=== PATIENT | male | born 1995 | race Caucasian/White ===

== ENCOUNTER 2021-12-29 09:02 | Emergency (ER) | payer OTHER, SELFPAY ==
[2021-12-29] VITALS (20 sets, daily range): BP systolic 108–141; BP diastolic 78–90; PULSE 64–83; RESP 11–35; TEMP 36.9; O2SAT 96–98
--- NOTE | ~2021-12-29 | XR_ITS ---
EXAMINATION: XR chest 1V portable EXAM DATE: 12/29/2021 09:29 INDICATION: left sided chest pain TECHNIQUE: Portable AP frontal chest x-ray was obtained. There is no prior study for comparison. FINDINGS: Small amount of left basilar airspace disease. The lungs are otherwise clear. There are no pleural effusions. The cardiomediastinal silhouette is within normal limits. There is no pneumotho rax suspected. The bones and soft tissues are unremarkable. IMPRESSION: Small amount of left basilar pneumonia or atelectasis. Reviewed, dictated and finalized at location A. EST SUPERVISOR
--- NOTE | 2021-12-29 09:18 | ECG_ITS ---
Measurements Intervals [place] Rate: 62 P: 24 TX: 134 QRS: 35 QRSD: 97 T: 42 QT: 359 QTc: 366 Interpretive Statements SINUS RHYTHM ST ELEVATION IN ANTEROLATERAL LEADS, PROBABLY EARLY REPOLARIZATION MINIMAL Q WAVES- LAT/HIGH LAT LEADS BASELINE ARTIFACT- I, II, III, V1-V4 BORDERLINE ECG Electronically Signed On 12-29-2021 11:02:20 [employer] SUPERVISOR by Mati Lara D.O.
--- NOTE | 2021-12-29 09:20 | PC.NURSE ---
Radiology at bedside to obtain chest xray.
--- NOTE | 2021-12-29 09:22 | ED.CHESTPAIN ---
HPI - Chest Pain General Chief Complaint: Chest Pain Stated Complaint: SOB,CP Time Seen by Provider: 12/29/21 09:07 Source: patient Mode of arrival: EMS Limitations: no limitations History of Present Illness HPI narrative: 26 y/o male presents with left sided chest pain that increased with deep breaths that started Tuesday. patient states he went to [facility] twice yesterday and was diagnosed with pneumonia. Patient said he has been taking prescribed antibiotics and Tylenol with no relief. Patient states he cannot take the pain anymore. Patient has a history of ulcerative colitis but denies any chest lung or other abdominal issues. Patient denies cough fever or shortness of breath. Related Data Home Medications Medication Instructions Recorded Confirmed ampicillin 12/29/21 Allergies Allergy/AdvReac Type Severity Reaction Status Date / Time Sulfa (Sulfonamide Allergy Diarrhea Verified 12/29/21 09:11 Antibiotics) Review of Systems Review of Systems: All systems reviewed & are unremarkable except as noted in HPI and below Constitutional: Constitutional: Reports no additional constitutional complaints Eyes: Eyes: Reports no additional eye complaints ENT: Reports system reviewed and no additional complaints, except as documented Cardiovascular: Cardiovascular: Reports chest pain Comments: Pleuritic chest pain Respiratory: Respiratory: Reports no additional respiratory complaints Gastrointestinal: Gastrointestinal: Reports no additional gastrointestinal complaints Genitourinary: Genitourinary: Reports no additional male genitourinary complaints Musculoskeletal: Musculoskeletal: Reports no additional musculoskeletal complaints Integumentary/Breasts: Skin/Breast: Reports system reviewed and no additional complaints, except as docu Neurologic: Reports system reviewed and no additional complaints, except as documented Psychiatric: Psychiatric: Reports no additional psychiatric complaints Endocrine: Endocrine: Reports no additional endocrine complaints Hematologic/Lymphatic: Hematologic/Lymphatic: Reports no additional hematologic/lymphatic complaints Allergic/Immunologic: Allergic/Immunologic: Reports no additional allergic/immunologic complaints Exam Narrative: General appearance: Well-developed, well-nourished Skin: Normal color Head: Normocephalic, nontraumatic Eyes: Clear conjunctiva ENT: Oropharynx normal, ears normal, nose normal Neck: Supple, nontender Chest and respiratory: Airway patent, no respiratory distress, no accessory muscle use Heart: Regular rate/rhythm Abdomen: Soft, nontender, no organomegaly, quiet bowel sounds Vascular: Normal peripheral pulses, normal capillary refill. Musculoskeletal: Normal range of motion, nontender back Neurologic: Alert and oriented ?3, [employer] is normal as tested, no gross motor deficit Course Course Emergency Course: Pain is relieved by Toradol. Blood work within normal limits. Chest x-ray confirms pneumonia. Reevaluation(s) Reevaluation #1: Pain is down to a 2 out of 10. Date: 12/29/21 Time: 10:35 Vital Signs Vital signs: Vital Signs Temperature 36.9 C 12/29/21 09:03 Pulse Rate 80 12/29/21 09:03 Respiratory Rate 19 12/29/21 09:03 Blood Pressure 141/85 H 12/29/21 09:03 Pulse Oximetry 98 12/29/21 09:03 Temperature 36.9 C 12/29/21 09:03 Pulse Rate 72 12/29/21 10:00 Respiratory Rate 19 12/29/21 09:03 Blood Pressure 141/85 H 12/29/21 09:03 Pulse Oximetry 96 12/29/21 10:02 MDM - Chest Pain Differential Diagnosis Differential diagnosis: Likely fracture of rib, pneumothorax, stable angina, costochondritis, chest pain and other (p
[2021-12-29] MEDS: KETOROLAC 30 MG/ML VIAL (*BKC) IV PUSH (09:28)
[2021-12-29 09:46] LABS: Basophils Absolute Auto 0.1 K/mm3 (0.0-0.1); Basophils Percent Auto 0.4 % (0.2-1.2); Eosinophils Absolute Auto 0.3 K/mm3 (0-0.3); Eosinophils Percent Auto 2.5 % (0-4.4); Hematocrit 43.9 % (42.0-52.0); Hemoglobin 14.4 g/dL (14.0-18.0); Immature Granulocyte Absolute 0.06 K/mm3 (0.00-0.031); Immature Granulocyte Percent A 0.5 % (0-0.5); Lymphocytes Absolute Auto 2.48 K/mm3 (0.9-3.2); Lymphocytes Percent Auto 20.3 % (18.3-44.2); Mean Corpuscular HGB Conc 32.8 g/dl (32-36); Mean Corpuscular Hemoglobin 29.1 pg (26-34); Mean Corpuscular Volume 88.7 fl (80-100); Mean Platelet Volume 9.6 fl (7.4-10.4); Monocytes Absolute Auto 0.8 K/mm3 (0.1-0.6); Monocytes Percent Auto 6.6 % (2.6-8.5); Neutrophils Absolute Auto 8.5 K/mm3 (1.3-6.7); Neutrophils Percent Auto 69.7 % (45.5-73.1); Platelet Count Result 249 k/mm3 (150-375); Red Blood Count 4.95 M/mm3 (4.6-6.20); Red Cell Distribution Width 12.6 % (11.5-14.5); White Blood Count 12.2 K/mm3 (4.5-10.0)
[2021-12-29 09:59] LABS: Alanine Aminotransferase 20 U/L (4-50); Albumin Level 4.5 g/dL (3.5-5.1); Alkaline Phosphatase 69 U/L (38-126); Anion Gap 9 mmol/L (8-16); Aspartate Amino Transferase 23 U/L (17-59); Bilirubin,Total 0.4 mg/dL (0.2-1.3); Blood Urea Nitrogen 13 mg/dL (9-20); Calcium 9.1 mg/dL (8.4-10.2); Carbon Dioxide 26 mmol/L (22-30); Chloride 105 mmol/L (98-107); Estimated CRCL calculation 109 ml/min; Estimated Glomerular Filt Rate > 60; Glucose 154 mg/dL (65-110); Potassium 4.1 mmol/L (3.4-5.0); Sodium 140 mmol/L (137-145)
[2021-12-29 10:10] LABS: Troponin I < 0.012 ng/mL (0.000-0.034)
--- NOTE | 2021-12-29 10:30 | PC.NURSE ---
EDP at bedside.
== END 2021-12-29 11:10 | disposition home or self-care (01) ==
PROVIDERS: Emergency Provider Nurse Practitioner Family
DX: J18.9 Pneumonia, unspecified organism (principal); R09.1 Pleurisy; K51.90 Ulcerative colitis, unspecified, without complications; R94.31 Abnormal electrocardiogram [ECG] [EKG]
CPT/HCPCS: 36415; 71045; 80053; 84484; 85025; 93005; 96374; 99284; J1885